=== PATIENT | female | born 1935 | race Caucasian/White ===

== ENCOUNTER 2017-02-26 08:46 | Emergency (ER) | payer OTHER, BC ==
[2017-02-26 08:54] VITALS: TEMP 97.5; BMI 21.9
--- NOTE | 2017-02-26 09:48 | PDOC ---
Attending Attestation - Resident Resident Name: Greg Wakefield - ED Attending Attestation I have performed the following: I have examined & evaluated the patient, The case was reviewed & discussed with the resident, I agree w/resident's findings & plan, Exceptions are as noted - Physicial Exam PE: GENERAL: Awake, alert, and fully oriented, in no acute distress HEAD: No signs of trauma EYES: PERRLA, EOMI, sclera anicteric, conjunctiva clear ENT: Auricles normal inspection, hearing grossly normal, nares patent, oropharynx clear without exudates. Moist mucosa NECK: Normal ROM, supple, no lymphadenopathy, JVD, or masses LUNGS: Breath sounds equal, clear to auscultation bilaterally. No wheezes, and no crackles HEART: Regular rate and rhythm, normal S1 and S2, no murmurs, rubs or gallops ABDOMEN: Soft, nontender, normoactive bowel sounds. No guarding, no rebound. No masses MUSCULOSKELETAL: Normal range of motion, no edema. No clubbing or cyanosis. No cords, erythema, or tenderness. +Tremors to hands B/L. +Tenderness to L lower rib margin in the mid-axillary line. No midline spinal tenderness. NEUROLOGICAL: Cranial nerves II through XII grossly intact. Normal speech, normal gait. Motor and sensation intact. SKIN: Warm, Dry, normal turgor, no rashes or lesions noted. - Medical Decision Making 02/26/17 10:08 Patient declines pain medications due to history of polypharmacy. Will obtain rib series to further evaluate. <Shanika Hernandez - Last Filed: 02/26/17 10:06> - HPI HPI: 02/26/17 10:13 81 year old female, with significant past medical history of tremors, HTN , on eliquis, HLD, seizures, hypothyroidism, who presents to the emergency department complaining of left sided rib pain s/p unwitnessed fall last night. Pt explains that her left foot slipped from under her and she slipped and fell on carpeted floor on the way to the bathroom. She landed on her right side and denies hitting her head. Her lifted her up off the floor and the patient went back to bed. She describes the left sided rib pain as dull. The pain is not worse with taking a deep breath. She wrapped her torso with an shey wrap before coming into the ER. She denies any other pain at this time. Denies headache, lightheadedness, changes in vision, weakness. Denies chest pain, SOB. Denies fever, chills, nausea, vomiting. Allergies: NKDA PCP: Dr. Jignesh Abrams <Anais Gant - Last Filed: 02/26/17 10:14>
[2017-02-26] MEDS ORDERED: traMADol HCL 50 MG TABLET PO ONE (09:57)
--- NOTE | 2017-02-26 10:06 | PDOC ---
History of Present Illness - General Chief Complaint: Injury Stated Complaint: FALL Time Seen by Provider: 02/26/17 09:06 History Source: Patient Exam Limitations: No Limitations - History of Present Illness Initial Comments: 02/26/17 10:09 81 year old F with significant pmh of atrial fibrillation on eliquis presenting s/p fall. Patient was walking at home around 2 AM when she slipped and fell on her left side. Her came and helped her up. She woke up this morning with left sided rib pain, nonradiating. Patient states she had no head trauma, no LOC, no numbness/tingling. Patient follows with a neurologist for her chronic tremors and instability. Patient denies any other pain. Patient currently on antibiotic for UTI. PSH: hysterectomy, appendectomy All: NKDA SH: Denies PCP: Dr. Sawyer Past History - Past Medical History Allergies/Adverse Reactions: Allergies Allergy/AdvReac Type Severity Reaction Status Date / Time No Known Allergies Allergy Verified 02/26/17 08:54 Home Medications: Ambulatory Orders Apixaban [Eliquis] 5 mg PO BID 02/26/17 Atorvastatin Calcium 10 mg PO DAILY 02/26/17 Cholecalciferol (Vitamin D3) [Vitamin D3] 0 unit PO DAILY 02/26/17 Donepezil HCl [Aricept -] 10 mg PO DAILY 02/26/17 Estradiol [Vagifem] 10 mcg VG ASDIR 02/26/17 Levothyroxine [Synthroid -] 75 mcg PO DAILY 02/26/17 Metoprolol Tartrate 50 mg PO BID 02/26/17 Multivit-Min/Iron/Folic/Lutein [Centrum Silver Women Tablet] 1 each PO DAILY Polyethylene Glycol 3350 [Miralax (For Bowel Prep) -] 17 gm PO DAILY 02/26/17 Primidone [Mysoline -] 100 mg PO DAILY 02/26/17 Propranolol HCl 40 mg PO BID 02/26/17 Pyridoxine HCl (B-6) [Vitamin B6] 1 tab PO DAILY 02/26/17 Valsartan 40 mg PO DAILY 02/26/17 Cardiac Disorders: Yes (A FIB) Disorders: Yes (overactive bladder) HTN: Yes Hypercholesterolemia: Yes Thyroid Disease: Yes (hypothyroid) - Surgical History Cardiac Surgery: Yes (PACEMAKER) - Suicide/Smoking/Psychosocial Hx Smoking Status: No Smoking History: Never smoked Number of Cigarettes Smoked Daily: 0 Hx Alcohol Use: No Drug/Substance Use Hx: No Substance Use Type: None Review of Systems - Review of Systems Able to Perform ROS?: Yes Comments:: 02/26/17 10:18 GENERAL/CONSTITUTIONAL: No fever or chills. + chronic weakness. HEAD, EYES, EARS, NOSE AND THROAT: No change in vision. No ear pain or discharge. No sore throat. CARDIOVASCULAR: No chest pain or shortness of breath RESPIRATORY: No cough, wheezing, or hemoptysis. GASTROINTESTINAL: No nausea, vomiting, diarrhea or constipation. GENITOURINARY: No dysuria, frequency, or change in urination. MUSCULOSKELETAL: +Left rib tenderness. SKIN: No rash NEUROLOGIC: No headache, vertigo, loss of consciousness, or change in strength/ sensation. ENDOCRINE: No increased thirst. No abnormal weight change HEMATOLOGIC/LYMPHATIC: No anemia, easy bleeding, or history of blood clots. ALLERGIC/IMMUNOLOGIC: No hives or skin allergy. *Physical Exam - Vital Signs Last Vital Signs Temp Pulse Resp BP Pulse Ox 97.5 F L 67 20 139/84 100 02/26/17 08:48 02/26/17 08:48 02/26/17 08:48 02/26/17 08:48 02/26/17 08:48 - Physical Exam Comments: 02/26/17 10:18 GENERAL: Awake, alert, and fully oriented, in no acute distress, +Bilateral resting tremor HEAD: No signs of trauma, normocephalic, atraumatic EYES: PERRLA, EOMI, sclera anicteric, conjunctiva clear ENT: Auricles normal inspection, hearing grossly normal, nares patent, oropharynx clear without exudates. Moist mucosa NECK: Normal ROM, supple, no lymphadenopathy, JVD, or masses LUNGS: No distress, speaks full sentences, clear to auscultation bilaterally HEART: Regular rate and rhythm, normal S1 and S2, no murmurs, rubs or gallops, peripheral pulses normal and equal bilaterally. ABDOMEN: Soft, nontender, normoactive bowel sounds. No guarding, no rebound. No masses EXTREMITIES: Normal inspection, Normal range of motion of L shoulder/hip, + point tenderness to left 6th/7th rib @ mid-axillary line, no edema. No clubbing or cyanosis. No ecchymosis NEUROLOGICAL: Cranial nerves II through XII grossly intact. Normal speech, normal gait, no focal sensorimotor deficits. Chronic leg/arm weakness SKIN: Warm, Dry, normal turgor, no rashes or lesions noted. ED Treatment Course - RADIOLOGY Radiology Studies Ordered: Category Date Time Status RIBS-LEFT SIDE [RAD] Stat Radiology 02/26/17 09:45 Ordered Medical Decision Making - Medical Decision Making 02/26/17 10:30 81 year old F with significant pmh of atrial fibrillation on eliquis presenting s/p fall. Plan: Rib series, EKG. Patient denies head trauma, LOC-- no indication for Head CT at this time. Patient refuses pain medication and is on an abx for a UTI- no indication for pain managment and UA 02/26/17 11:15 Rib xray negative for any fracture. EKG- HR 61, Atrial paced rhythm, Qtc 455. No St changes suggestive of ischemia/ infarct Patient stable for discharge *DC/Admit/Observation/Transfer Diagnosis at time of Disposition: Rib pain on left side - Discharge Dispostion Disposition: HOME Condition at time of disposition: Stable - Patient Instructions Printed Discharge Instructions: DI for Rib Contusion Additional Instructions: Follow up with your primary care provider within 1 week. If you have pain while taking deep breaths, take tylenol to relieve the pain. If you have chest pain, shortness of breath, or any new/worsening symptoms please come back to the hospital immediately.
[2017-02-26] MEDS ORDERED: traMADol HCL 50 MG TABLET ONE (10:07)
[2017-02-26 11:38] VITALS: BP 161/97; PULSE 76
--- NOTE | 2017-02-27 10:15 | EKG ---
Test Reason : Blood Pressure : / mmHG Vent. Rate : 061 BPM Atrial Rate : 060 BPM P-R Int : 210 ms QRS Dur : 094 ms QT Int : 452 ms P-R-T Axes : 028 -17 011 degrees QTc Int : 455 ms Atrial-paced rhythm with prolonged AV conduction MINIMAL VOLTAGE CRITERIA FOR LVH, MAY BE NORMAL VARIANT ABNORMAL ECG WHEN COMPARED WITH ECG OF 23-APR-2016 11:58, ELECTRONIC ATRIAL PACEMAKER HAS REPLACED SINUS RHYTHM Confirmed by GARTH BENZ MD ([id number]) on 02/27/2017 10:14:44 AM Referred By: Confirmed By:GARTH BENZ MD
== END 2017-02-26 11:29 | disposition home or self-care (01) ==
LOC: JER 08:46
DX: S20.212A Contusion of left front wall of thorax, initial encounter (principal); I48.91 Unspecified atrial fibrillation; Z79.01 Long term (current) use of anticoagulants; R25.1 Tremor, unspecified; I10 Essential (primary) hypertension; E78.00 Pure hypercholesterolemia, unspecified; E03.9 Hypothyroidism, unspecified; N32.81 Overactive bladder; Z95.0 Presence of cardiac pacemaker
CPT/HCPCS: 71101-TC; 93005; 93010; 99282-25

== ENCOUNTER 2017-11-21 12:05 | Emergency (ER) | payer OTHER, BC ==
--- NOTE | 2017-11-21 12:09 | PDOC ---
History of Present Illness - General Stated Complaint: ALTERED MENTAL STATUS Time Seen by Provider: 11/21/17 12:08 - History of Present Illness Initial Comments: 11/21/17 12:09 Ms. Dubon is an 82 yo female w/ pmh of tremors, HTN, afib on eliquis, seizure disorder, and hypothyroidism who presents for evaluation of AMS. Per she has been having shaking episodes over the weekend that were all self limited however he decided to call EMS once it was observed that they went on longer today. is very irate that she was brought to [facility] instead of [facility] where she typically gets her care and is refusing to give additional history. Unable to obtain further information. Past History - Past Medical History Allergies/Adverse Reactions: Allergies Allergy/AdvReac Type Severity Reaction Status Date / Time No Known Allergies Allergy Verified 02/26/17 08:54 Home Medications: Ambulatory Orders Apixaban [Eliquis] 5 mg PO BID 02/26/17 Atorvastatin Calcium 10 mg PO DAILY 02/26/17 Cholecalciferol (Vitamin D3) [Vitamin D3] 0 unit PO DAILY 02/26/17 Donepezil HCl [Aricept -] 10 mg PO DAILY 02/26/17 Estradiol [Vagifem] 10 mcg VG ASDIR 02/26/17 Levothyroxine [Synthroid -] 75 mcg PO DAILY 02/26/17 Metoprolol Tartrate 50 mg PO BID 02/26/17 Multivit-Min/Iron/Folic/Lutein [Centrum Silver Women Tablet] 1 each PO DAILY Polyethylene Glycol 3350 [Miralax (For Bowel Prep) -] 17 gm PO DAILY 02/26/17 Primidone [Mysoline -] 100 mg PO DAILY 02/26/17 Propranolol HCl 40 mg PO BID 02/26/17 Pyridoxine HCl (B-6) [Vitamin B6] 1 tab PO DAILY 02/26/17 Valsartan 40 mg PO DAILY 02/26/17 Cardiac Disorders: Yes (A FIB) Disorders: Yes (overactive bladder) HTN: Yes Hypercholesterolemia: Yes Thyroid Disease: Yes (hypothyroid) - Surgical History Cardiac Surgery: Yes (PACEMAKER) - Suicide/Smoking/Psychosocial Hx Smoking Status: No Smoking History: Never smoked Number of Cigarettes Smoked Daily: 0 Hx Alcohol Use: No Drug/Substance Use Hx: No Substance Use Type: None Review of Systems - Review of Systems Comments:: 11/21/17 12:40 Unable to obtain further history. *Physical Exam - Physical Exam Comments: 11/21/17 12:11 GENERAL: + Awake, tremulus, moaning. Unable to answer questions or participate in exam. HEAD: No signs of trauma, normocephalic, atraumatic EYES: PERRLA, EOMI, sclera anicteric, conjunctiva clear ENT: Auricles normal inspection, hearing grossly normal, nares patent, oropharynx clear without exudates. Moist mucosa NECK: Normal ROM, supple, no lymphadenopathy, JVD, or masses LUNGS: +Lungs diffusely coarse. HEART: +Irregular rhythm, regular rate, normal S1 and S2, no murmurs, rubs or gallops, peripheral pulses normal and equal bilaterally. ABDOMEN: Soft, nontender, normoactive bowel sounds. No guarding, no rebound. No masses EXTREMITIES: Normal inspection, Normal range of motion, no edema. No clubbing or cyanosis. NEUROLOGICAL: +Unable to assess SKIN: Warm, Dry, normal turgor, no rashes or lesions noted. ED Treatment Course - LABORATORY CBC & Chemistry Diagram: 11/21/17 12:21 11/21/17 12:21 Medical Decision Making - Medical Decision Making 11/21/17 12:58 Ms. Dubon is an 82 yo female w/ pmh as described BIBA for evaluation of AMS. unwilling to provide information further than listed above. CBC/CMP /UA/UCx/CXR/Head CT sent for evaluation of AMS. Patient returned with health care proxy and elected to sign patient out AMA and reports he will transfer to [facility]. No labs or radiology reads back at this time. Will transmit all data as it becomes available to [facility] for assistance of further care. *DC/Admit/Observation/Transfer Diagnosis at time of Disposition: Altered mental status Qualifiers: Altered mental status type: unspecified Qualified Code(s): R41.82 - Altered mental status, unspecified - Discharge Dispostion Disposition: AGAINST MEDICAL ADVICE - Referrals - Patient Instructions - Post Discharge Activity
--- NOTE | 2017-11-21 12:14 | PDOC ---
Attending Attestation - Resident Resident Name: Jerson Short - ED Attending Attestation I have performed the following: I have examined & evaluated the patient, The case was reviewed & discussed with the resident, I agree w/resident's findings & plan, Exceptions are as noted - HPI HPI: 11/21/17 13:26 The patient is an 82 year old female brought in by EMS, with a significant past medical history of tremors, hypertension, atrial fibrillation on eliquis, hypothyroidism, and seizure disorder, who presents to the emergency department for evaluation of altered mental status. As per , the patient has been having shaking episodes over the weekend. He states he activated EMS secondary to a shaking episode lasting longer than previous episodes. The is very upset that the patient was brought to [facility] instead of [facility] where she normally receives care. The refuses to give any additional history. History Limited from patient secondary to altered mental status. Upon arrival to the emergency department attempted to remove patient from stretcher in place and wheelchair stating that he would drive the patient directly to [facility] I calmly explained to the that we could not simply allow this I would need documentation that he is healthcare proxy he would need to sign out AMA prior to that we are required to provide a medical screening examination as to maintain compliance with EMTALA. proceeded to return home to obtain this paperwork. - Physicial Exam PE: 11/21/17 13:28 Vitals: Triage Vital signs reviewed General Appearance: mild tremor noted Head: Atraumatic, Eyes: Pupils equal reactive round, extraocular movement intact Chest Wall: Nontender Cardiac: Regular rate and rhythym, no murmurs, no rubs, no gallops, Lungs: Clear to auscultation bilateral, good air movement bilaterally, Abdomen: Soft, non distended, normal bowel sounds, non tender to palpation Extremities: Full range of motion to all extremities, no cyanosis, clubbing, or edema Skin: Warm and dry, no rashes or lesions, no rash, no petechiae Neuro: AOX1; Cranial Nerves 2-12 grossly intact, Strength intact to all extremities, Sensation intact to all extremities, Psych: AMS - Medical Decision Making 11/21/17 13:29 Patient presented to the emergency department with altered mental status. While was obtaining healthcare proxy I have obtained a stat head CT chest x- ray labs and urinalysis Patient remains altered but has stable vital signs I have contacted the patient's primary care provider Dr. Pepper who unfortunately does not have admitting privileges to [facility]. I have contacted the [facility] emergency department as a courtesy heads-up that this patient may be signing out AGAINST MEDICAL ADVICE and the may be transporting the patient to the emergency department has returned with proxy paperwork. At this point her head CT does not show an acute bleed her vital signs are stable her chest x-ray does not show any acute process Patient remains altered and cannot consent or disagree with her signed her out AGAINST MEDICAL ADVICE I have spent greater than 45 minutes attempting to convince to remain here as I cannot transfer her to another facility secondary to her primary care provider not being accepting physician at [facility] is adamant about signing again out AGAINST MEDICAL ADVICE. He appears competent free of distracting injury and has signed AMA paperwork. The patient is presenting with altered mental status. I am concerned that this may be secondary to underlying infection or other toxic metabolic derangement.. The patient's has verbalized understanding of my concerns. The patients who is the HCP, acting on behalf of the patient, is clinically sober and appears free from distracting injury. The HCPtappears to have intact insight, judgment, and reason. In my opinion, this patient has the capacity to make decisions The risks of leaving against medical advice without further evaluation treatment were discussed with the patient. These risks include , permanant disability. The HCP indicated understanding of these risks and appeared to have the capacity to make this decision. The patient's HCP/ is unwilling to stay for a further workup. He is unwilling to remain for additional monitoring. He is refusing further care and leaving against medical advice I'm unable to convince the patient's HCP to stay. I have asked the patient to return as soon as possible to complete his/her evaluation. I have spoken with the patient's primary care doctor to arrange follow-up. The has now signed out AGAINST MEDICAL ADVICE with assisted his into wheelchair into a car to be driven over to either [facility] warrants [facility]. I have spoken to both of these facilities to inform them of the situation of the patient I have also contacted Adult Protective Services because I was concerned about the 's anger and willingness to simply remove the patient from a stretcher into wheelchair and regional driver to hospital when she was receiving completely appropriate medical care here at this institution and did not require transfer to another facility. I've also spoken to the patient's daughter to inform her of the situation.
[2017-11-21 12:32] LABS: BASO % 0.9 % (0-2.0); EOS % 0.8 % (0-4.5); LYMPH % 29.7 % (8-40); MCH 32.1 pg (25.7-33.7); MCHC 33.4 g/dl (32.0-36.0); MEAN PLT VOLUME 9.6 fl (7.5-11.1); MONO % 7.2 % (3.8-10.2); NEUT % 61.4 % (42.8-82.8); PLATELET COUNT 150 K/MM3 (134-434); RBC 4.06 M/mm3 (3.60-5.2); RDW 14.2 % (11.6-15.6); WHITE BLOOD COUNT 4.4 K/mm3 (4.0-10.0)
[2017-11-21 12:56] LABS: URINE APPEARANCE SLCLOUDY; URINE BILIRUBIN NEGATIVE (<2.0 mg/dL); URINE COLOR LTYELLOW; URINE GLUCOSE (UA) NEGATIVE (NEGATIVE); URINE KETONE NEGATIVE (NEGATIVE); URINE LEUK ESTERASE TRACE (NEGATIVE); URINE NITRITE POSITIVE (NEGATIVE); URINE PROTEIN NEGATIVE (NEGATIVE); URINE UROBILINOGEN NEGATIVE mg/dL (0.2-1.0)
[2017-11-21 12:58] VITALS: BP 163/95; PULSE 67; TEMP 99.4
[2017-11-21 13:00] LABS: ALBUMIN 3.9 g/dl (3.4-5.0); ANION GAP 8 (8-16); BILIRUBIN,TOTAL 0.4 mg/dL (0.2-1.0); BLOOD UREA NITROGEN 22 mg/dL (7-18); CALCIUM 9.8 mg/dL (8.5-10.1); CHLORIDE 105 mmol/L (98-107); CO2 28 mmol/L (21-32); CREATININE 0.9 mg/dL (0.55-1.02); GLUCOSE,RANDOM 93 mg/dL (74-106); POTASSIUM 3.7 mmol/L (3.5-5.1); SGOT/AST 24 U/L (15-37); SGPT/ALT 36 U/L (12-78); SODIUM 141 mmol/L (136-145); TOT PROT 6.9 g/dl (6.4-8.2)
[2017-11-21 13:01] LABS: ALK PHOS 85 U/L (45-117)
[2017-11-21 13:09] VITALS: BMI 25.7
[2017-11-21 14:21] LABS: EPI CELLS RARE /HPF (FEW)
[2017-11-21 14:23] LABS: URINE BACTERIA MANY /hpf (NONE SEEN)
--- NOTE | 2017-11-23 08:43 | PDOC ---
Patient Follow-up (Call Back) - Post ED Follow - Up Disposition at time of original discharge: AGAINST MEDICAL ADVICE Reason for Call Back: Abnwl. Microbiology (Patient with positive blood culture. was informed that the patient needs to return to the hospital for IV antibiotics. He states he will bring her back to [place].)
--- NOTE | 2017-11-24 12:54 | PDOC ---
Patient Follow-up (Call Back) - Post ED Follow - Up Disposition at time of original discharge: AGAINST MEDICAL ADVICE Reason for Call Back: Abnwl. Microbiology (Pt with positive blood cultures and today with a positive urine culture. Left message on phone to inform of positive urine culture. Pt was informed of her positive blood culture yesterday. Following up to see it pt went to another facility for treatment.)
--- NOTE | 2017-11-25 08:19 | PDOC ---
Patient Follow-up (Call Back) - Post ED Follow - Up Disposition at time of original discharge: AGAINST MEDICAL ADVICE Reason for Call Back: Abnwl. Microbiology (Spoke to Patient at home and states is on bactrim. She states was admitted for 3 days at [facility] and now is home feeling fine.)
== END 2017-11-21 13:10 | disposition left against medical advice (07) ==
LOC: JER 12:05
DX: R41.82 Altered mental status, unspecified (principal); I10 Essential (primary) hypertension; I48.91 Unspecified atrial fibrillation; Z79.01 Long term (current) use of anticoagulants; R25.1 Tremor, unspecified; G40.909 Epilepsy, unspecified, not intractable, without status epilepticus; E03.9 Hypothyroidism, unspecified; E78.00 Pure hypercholesterolemia, unspecified; Z95.0 Presence of cardiac pacemaker
CPT/HCPCS: 36415; 70450-TC; 71045-TC-FY; 80053; 81003; 81015; 82962; 85025; 87040; 87086; 87186; 99282-25